=== PATIENT | female | born 1940 | race Caucasian/White ===

== ENCOUNTER 2023-02-22 16:38 | Emergency (ER) | payer SELFPAY | END 2023-02-22 18:30 | LOC: DL.ED 16:38 | DX: R00.1 Bradycardia, unspecified (principal); I10 Essential (primary) hypertension; I25.2 Old myocardial infarction; E78.00 Pure hypercholesterolemia, unspecified | CPT/HCPCS: 93005; 93010; 99284; 99285 ==